=== PATIENT | male | born 1990 ===

== ENCOUNTER 2017-11-07 13:56 | Emergency (ER) | payer MEDICAID ==
[2017-11-07 14:05] VITALS: BP 119/59; PULSE 80; RESP 16; TEMP 98.6; O2SAT 99
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
== END 2017-11-07 15:51 | disposition home or self-care (01) ==
LOC: H.ER 13:56
DX: M54.31 Sciatica, right side (principal)
CPT/HCPCS: 96372; 99281; J1885

== ENCOUNTER 2018-04-07 08:39 | Day surgery (SDC) | payer MEDICAID ==
[2018-04-07] MEDS ORDERED: Lactated Ringer's 500 ML IV ONE (09:02)
[2018-04-07] MEDS ORDERED: Propofol 10 mg/ml Inj (20 ML) ONE (09:29)
[2018-04-07 10:09] VITALS: TEMP 98; O2SAT 99
[2018-04-07 10:19] VITALS: BP 110/70; PULSE 76; RESP 14
== END 2018-04-07 11:00 | disposition home or self-care (01) ==
LOC: H.ENDO 08:39
PROVIDERS: ATTEND Internal Medicine Gastroenterology
DX: K52.9 Noninfective gastroenteritis and colitis, unspecified (principal); K29.70 Gastritis, unspecified, without bleeding; K30 Functional dyspepsia; Z80.0 Family history of malignant neoplasm of digestive organs
CPT/HCPCS: 43239; 45380; 88305; J2001; J2250; J2704; J7120

== ENCOUNTER 2019-02-03 23:00 | Emergency (ER) | payer MEDICAID, OTHER ==
[2019-02-04 01:00] VITALS: BP 116/62; PULSE 67; RESP 19; TEMP 98.3; O2SAT 99
--- NOTE | 2019-02-04 01:57 | ED PDOC ---
HPI: Psych/Substance Abuse Time Seen by Provider: 02/03/19 23:43 Chief Complaint (Nursing): Medical Clearance Chief Complaint (Provider): Medical Clearance History Per: Patient History/Exam Limitations: no limitations (v) Onset/Duration Of Symptoms: Days (x 1) Current Symptoms Are (Timing): Still Present Suicide/Self Injury Attempted (Context): None Associated Symptoms: Anxiety Involuntary Hold By: Local Law Enforcement Additional Complaint(s): 28 year old male with a history of anxiety presents to the ED for evaluation of anxiety provoked by being arrested today. Patient reports his typical symptoms related to his anxiety are chest tightness and difficulty breathing. He is prescribed Xanax for his anxiety that he no longer takes per his doctor's instructions after he was prescribed Percocet for chronic back pain. He denies homicidal and suicidal ideation as well as auditory or visual hallucinations. PMD: Dr. Brito Past Medical History Reviewed: Historical Data, Nursing Documentation, Vital Signs Vital Signs: Last Vital Signs Temp 98.3 F 02/04/19 00:40 Pulse 67 02/04/19 00:40 Resp 19 02/04/19 00:40 BP 116/62 02/04/19 00:40 Pulse Ox 99 02/04/19 00:40 - Medical History PMH: Anxiety ([employer]IJUA[employer] DEPENDENCE), Asthma Denies: Chronic Kidney Disease - Surgical History Surgical History: Hernia Repair, Tonsillectomy - Family History Family History: States: Unknown Family Hx - Social History Current smoker - smoking cessation education provided: Yes Drugs: Cannabis - Home Medications Home Medications: Ambulatory Orders Medication Instructions Recorded Ibuprofen [Motrin] 600 mg PO TID #21 tab 08/23/18 - Allergies Allergies/Adverse Reactions: Allergies Allergy/AdvReac Type Severity Reaction Status Date / Time No Known Allergies Allergy Verified 02/03/19 23:01 Review of Systems ROS Statement: Except As Marked, All Systems Reviewed And Found Negative Psych: Positive for: Anxiety Physical Exam - Reviewed Nursing Documentation Reviewed: Yes Vital Signs Reviewed: Yes - Physical Exam Appears: Positive for: Non-toxic, No Acute Distress Head Exam: Positive for: ATRAUMATIC, NORMAL INSPECTION, NORMOCEPHALIC Skin: Positive for: Normal Color, Warm, Dry Eye Exam: Positive for: EOMI, Normal appearance, PERRL Neck: Positive for: Normal, Painless ROM, Supple Cardiovascular/Chest: Positive for: Regular Rate, Rhythm. Negative for: Murmur Respiratory: Positive for: Normal Breath Sounds. Negative for: Respiratory Distress Gastrointestinal/Abdominal: Positive for: Normal Exam, Soft. Negative for: Tenderness Back: Positive for: Normal Inspection. Negative for: L CVA Tenderness, R CVA Tenderness Extremity: Positive for: Normal ROM (x 4). Negative for: Deformity Neurological/Psych: Positive for: Awake, Alert, Normal Tone, Oriented (x 3), Mood/Affect (anxious mood). Negative for: Motor/Sensory Deficits - ECG O2 Sat by Pulse Oximetry: 99 (RA) Pulse Ox Interpretation: Normal Medical Decision Making Medical Decision Makin:26 A&P: mild anxiety Patient is not a threat to himself or others at this time. He denies medical complaints or thoughts of suicide. Patient is stable for incarceration. Orders: --Ativan 1 mg PO Scribe Attestation: Documented by Ariane Hernandez, acting as a scribe Duane Alexandra MD Provider Scribe Attestation: All medical record entries made by the Scribe were at my direction and personally dictated by me. I have reviewed the chart and agree that the record accurately reflects my personal performance of the history, physical exam, medical decision making, and the department course for this patient. I have also personally directed, reviewed, and agree with the discharge instructions and disposition. Disposition - Clinical Impression Clinical Impression: Anxiety - Patient ED Disposition Is Patient to be Admitted: No - Disposition Referrals: [facility] [Outside] Disposition: Discharged/Transfer to Law Enforcement Disposition Time: 00:40 Condition: IMPROVED Additional Instructions: Medically and psychiatrically cleared for incarceration. Instructions: Anxiety, Adult (DC) Forms: [employer] ([place] [employer])
== END 2019-02-04 00:40 | disposition home or self-care (01) ==
LOC: H.ER 23:00
DX: F41.9 Anxiety disorder, unspecified (principal)